=== PATIENT | female | born 1995 | race Caucasian/White ===

== ENCOUNTER 2016-11-29 19:03 | Emergency (ER) | payer OTHER ==
[~2016-11-29] VITALS: Ht 152.4 cm; Wt 47.5 kg
[2016-11-29 19:05] VITALS: Ht 152.4 cm; Wt 47.5 kg
[2016-11-29] MEDS ORDERED: IBUP-1542 PO (19:26)
[2016-11-29] MEDS ORDERED: CYCL-319 PO (19:26)
--- NOTE | 2016-11-29 19:36 | ERD ---
ER Documentation Chief Complaint Date/Time DATE: 11/29/16 TIME: 19:32 Chief Complaint neck pain since last night HPI 21-year-old female presents here in emergency department for complaints of right -sided neck pain started last night. Patient describes the pain as throbbing. 6/ 10 scale, is worse upon movement. Patient denies any direct trauma affected area. Patient denies any shortness of breath. Patient denies any stridor. Patient did not take any medications for pain. ROS All systems reviewed and are negative except as per history of present illness. Medications Home Meds Active Scripts Cyclobenzaprine Hcl* (Cyclobenzaprine Hcl*) 10 Mg Tablet, 10 MG PO TID, #15 TAB Prov:DAHIANA MOMIN TRACER CLERK 11/29/16 Ibuprofen* (Motrin*) 600 Mg Tab, 600 MG PO Q6H Y for PAIN AND OR ELEVATED TEMP, #30 TAB Prov:DAHIANA MOMIN TRACER CLERK 11/29/16 Allergies Allergies: Coded Allergies: No Known Allergy (Unverified , 11/29/16) PMhx/Soc Medical and Surgical Hx: pt denies Medical Hx, pt denies Surgical Hx FmHx Family History: No coronary disease, No diabetes, No other Physical Exam Vitals Vital Signs Date Time Temp Pulse Resp B/P Pulse Ox O2 Delivery O2 Flow Rate FiO2 11/29/16 19:05 98.9 87 20 131/74 97 Physical Exam GENERAL: The patient is well developed and appropriate for usual state of health, in no apparent distress. HEENT: Atraumatic. Ears: Normal tympanic membrane, no erythema or bulging. No ear canal swelling. No ear discharge. Nose: normal nasal turbinates, no erythema or swelling. Normal nasal discharge. Throat: oropharynx clear. No tonsillar swelling or tonsillar exudates. No lymphadenopathy. Noted some tenderness on palpation in the right neck area, no swelling, no deformity. No stridor noted. CHEST: Clear to auscultation bilaterally. There are no rales, wheezes or rhonchi. HEART: Regular rate and rhythm. No murmurs, clicks, rubs or gallops. No S3 or S4. ABDOMEN: Soft, nontender and nondistended. Good bowel sounds. No rebound or guarding. No gross peritonitis. No gross organomegaly or masses. No Park sign or McBurney point tenderness. BACK: No midline or flank tenderness. EXTREMITIES: Equal pulses bilaterally. There is no peripheral clubbing, cyanosis or edema. No focal swelling or erythema. Full range of motion. Grossly neurovascularly intact. NEURO: Alert and oriented. Cranial nerves 2-12 intact. Motor strength in all 4 extremities with 5/5 strength. Sensation grossly intact. Normal speech and gait. SKIN: There is no apparent rash or petechia. The skin is warm and dry. HEMATOLOGIC AND LYMPHATIC: There is no evidence of excessive bruising or lymphedema. No gross cervical, axillary, or inguinal lymphadenopathy. Procedures/MDM Medical decision making: Patient's symptoms most likely consistent with possible neck muscle strain, and symptoms of any abscess, no symptoms of any oral airway obstruction, no symptoms of peritonsillar abscess, laryngitis, epiglottitis, no foreign body sensation in the throat. Patient was given prescription for ibuprofen, Flexeril, is advised to apply warm compresses on affected area, follow-up with primary care doctor in 2-3 days reevaluation symptoms. Patient is advised to return to emergency department for any worsening symptoms Departure Diagnosis: Primary Impression: Neck pain Condition: Stable Patient Instructions: Neck Pain, No Trauma DAHIANA MOMIN NP November 29, 2016 19:36
== END 2016-11-29 19:31 | disposition home or self-care (01) ==
LOC: E/R 19:03
DX: M54.2 Cervicalgia (principal)
CPT/HCPCS: 99283